=== PATIENT | female | born 1965 | race Caucasian/White ===

== ENCOUNTER 2020-04-09 14:04 | Outpatient (CLI) | payer BC ==
--- NOTE | 2020-04-09 14:49 | BD ---
EXAM: Bone densitometry using DEXA HISTORY: 54 yo female. Screening for postmenopausal osteoporosis FINDINGS: L1--bone mineral density 0.947 g/sq cm; T score -0.4 ; Z score 0.7 L2--bone mineral density 0.944 g/sq cm; T score -0.8 ; Z score 0.4 L3--bone mineral density 0.923 g/sq cm; T score -1.5 ; Z score -0.2 L4--bone mineral density 0.923 g/sq cm; T score -1.3 ; Z score 0.0 Total L1-L4--bone mineral density 0.933 g/sq cm; T score -1.0 ; Z score 0 point Left femoral neck--bone mineral density0.911; T score 0.6 ; Z score 1.7 Total proximal left femur--bone mineral density 1.094; T score 1.2 ; Z score 2.0 IMPRESSION: Normal BMD
== END 2020-04-09 14:05 | disposition home or self-care (01) ==
LOC: BICMAMMO 14:04
PROVIDERS: ATTEND Specialist
DX: M81.0 Age-related osteoporosis without current pathological fracture (principal)
CPT/HCPCS: 77080